=== PATIENT | male | born 1955 | race African-American/Black ===

== ENCOUNTER 2021-11-02 13:12 | Emergency (ER) | payer OTHER, MEDICARE ==
[~2021-11-02] VITALS: Ht 180.3 cm; Wt 120.2 kg
[2021-11-02] MEDS ORDERED: METFORMIN HCL500 M3 PO (13:21)
[2021-11-02 13:46] LABS: ABSOLUTE BASOPHILS 0.1 thou/uL (0.0-0.2); ABSOLUTE EOSINOPHILS 0.1 thou/uL (0.0-0.7); ABSOLUTE LYMPHOCYTES 0.7 thou/uL (0.8-5.3); ABSOLUTE MONOCYTES 0.8 thou/uL (0.0-1.2); ABSOLUTE NEUTROPHILS 4.3 thou/uL (1.6-8.1); EOSINOPHILS 1.3 %; HEMATOCRIT 35.8 % (42.0-52.0); HEMOGLOBIN 11.8 gm/dL (14.0-18.0); LYMPHOCYTES 11.6 %; MCH 28.7 pg (26.0-34.0); MCHC 32.8 g/dL (28.0-37.0); MCV 87.5 fL (80.0-100.0); MPV 8.9 fl. (7.2-11.1); NUCLEATED RBCS 0 /100WBC; PLATELET COUNT* 201 thou/uL (150-400); POLYS 73.1 %; RDW-CV 15.4 % (10.5-14.5); WBC 5.9 thou/uL (4.0-11.0)
[2021-11-02 13:58] LABS: CREATININE 1.2 mg/dL (0.6-1.3); POTASSIUM 4.4 mmol/L (3.5-5.1)
[2021-11-02 14:02] LABS: ALBUMIN 3.5 g/dL (3.4-5.0); TOTAL BILIRUBIN 0.3 mg/dL (<0.1-1.0); TOTAL PROTEIN 8.1 g/dL (6.4-8.2)
[2021-11-02 15:30] VITALS: BP 155/64
--- NOTE | 2021-11-02 15:52 | EKG ---
[place] [address] ELECTROCARDIOGRAM REPORT Name: MARTHA SORIA Room: [facility]#: [id number] Admission: 11/02/21 Attend Phys: Discharge: Date of : 55 Date of Service: 11/02/21 1338 Report #: [id number] THIS REPORT FOR: //name// [facility] ED Test Date: 2021-11-02 Test Time: 13:38:53 Pat Name: MARTHA LONDONAM Department: Room: Gender: Plant Maintenance Manager: [facility] : 1955 Requested By: Francisco Glover Order Number: [id number] MD: Antonio Naik Measurements Intervals [place] Rate: 91 P: 16 PA: 212 QRS: 22 QRSD: 92 T: 86 QT: 345 QTc: 425 Interpretive Statements Sinus rhythm Borderline prolonged PA interval Nonspecific anterior precordial ST-T abnormality No previous ECG available for comparison Electronically Signed On 11-02-2021 15:51:57 [employer]IPE [employer] by Antonio Naik [email or web address] <ELECTRONICALLY SIGNED> By: Antonio Naik MD, [facility] 11/02/21 1551 1338 133 Antonio Naik MD, FACC /EPI
== END 2021-11-02 15:30 | disposition home or self-care (01) ==
LOC: M.ERS 13:12
PROVIDERS: Emergency Medicine
DX: U07.1 COVID-19 (principal); R55 Syncope and collapse; E11.9 Type 2 diabetes mellitus without complications; Z79.899 Other long term (current) drug therapy